=== PATIENT | female | born 1965 | race Caucasian/White ===

== ENCOUNTER → 2020-12-11 | Day surgery (SDC) | payer OTHER ==
[~2020-12-11] MED LIST: LISINOPRIL10 MG PO; MIRAPEX0.125 MG PO; NORCO 5-325 TA1 EACH PO; ZOLOFT100 MG PO
== END | disposition home or self-care (01) ==
LOC: OR 06:31
DX: Z12.11 Encounter for screening for malignant neoplasm of colon (principal); D12.7 Benign neoplasm of rectosigmoid junction; K21.00 Gastro-esophageal reflux disease with esophagitis, without bleeding; I10 Essential (primary) hypertension; F41.9 Anxiety disorder, unspecified; F32.9 Major depressive disorder, single episode, unspecified; E66.8 Other obesity; Z68.34 Body mass index [BMI] 34.0-34.9, adult; E78.5 Hyperlipidemia, unspecified; G47.30 Sleep apnea, unspecified; K44.9 Diaphragmatic hernia without obstruction or gangrene; D50.9 Iron deficiency anemia, unspecified; Z88.2 Allergy status to sulfonamides; K64.1 Second degree hemorrhoids; K31.9 Disease of stomach and duodenum, unspecified
CPT/HCPCS: 36415; 84703; J2704; J7040

== ENCOUNTER → 2021-01-21 | Outpatient (CLI) | payer OTHER | LOC: KOH-I 12:55 | DX: R50.9 Fever, unspecified (principal) | CPT/HCPCS: 71046 ==

== ENCOUNTER → 2021-03-04 | Outpatient (CLI) | payer OTHER | LOC: RAD 07:49 | DX: K44.9 Diaphragmatic hernia without obstruction or gangrene (principal); K21.9 Gastro-esophageal reflux disease without esophagitis | CPT/HCPCS: 74220 ==

== ENCOUNTER → 2021-09-17 | Outpatient (CLI) | payer OTHER | LOC: KOH-I 10:37 | DX: M25.551 Pain in right hip (principal); M25.552 Pain in left hip | CPT/HCPCS: 73522 ==

== ENCOUNTER → 2021-09-24 | Outpatient (CLI) | payer OTHER | LOC: KOH-I 13:24 | DX: M47.817 Spondylosis without myelopathy or radiculopathy, lumbosacral region (principal); M47.814 Spondylosis without myelopathy or radiculopathy, thoracic region; M47.812 Spondylosis without myelopathy or radiculopathy, cervical region | CPT/HCPCS: 72050; 72070; 72110 ==

== ENCOUNTER → 2022-02-05 | Outpatient (CLI) | payer OTHER | LOC: KOH-I 10:47 | DX: M25.511 Pain in right shoulder (principal) | CPT/HCPCS: 73522 ==